=== PATIENT | male | born 1955 | race Caucasian/White ===

== ENCOUNTER 2018-02-11 09:59 | Day surgery (SDC) | payer MEDICAID ==
[~2018-02-11] VITALS: Ht 188 cm; Wt 93.2 kg
[~2018-02-11 09:59] MED LIST: EYE DROPS
[2018-02-11] MEDS ORDERED: BUSP5TAB3 PO (10:14)
[2018-02-11] MEDS ORDERED: BUPR100T13 PO (10:14)
[2018-02-11] MEDS ORDERED: fentaNYL/PF 50MCG/1 ML 2ML syringe ONE (10:43)
[2018-02-11] MEDS ORDERED: MIDAZolam 5mg/5ml vial ONE (10:43)
[2018-02-11 10:45] VITALS: BP 149/89
[2018-02-11 11:22] VITALS: BP 117/68
[2018-02-11 11:32] VITALS: BP 106/60
[2018-02-11 11:42] VITALS: BP 110/59
[2018-02-11 11:52] VITALS: BP 121/65
== END 2018-02-11 12:00 | disposition home or self-care (01) ==
LOC: GI LAB 09:59
PROVIDERS: ATTEND Internal Medicine Gastroenterology
DX: Z12.11 Encounter for screening for malignant neoplasm of colon (principal); D12.2 Benign neoplasm of ascending colon; D12.4 Benign neoplasm of descending colon; K57.30 Diverticulosis of large intestine without perforation or abscess without bleeding; K64.8 Other hemorrhoids; F32.9 Major depressive disorder, single episode, unspecified; F41.8 Other specified anxiety disorders; Z86.010 Personal history of colon polyps; Z88.5 Allergy status to narcotic agent; Z86.69 Personal history of other diseases of the nervous system and sense organs; Z87.820 Personal history of traumatic brain injury; Z79.899 Other long term (current) drug therapy; Z98.890 Other specified postprocedural states
CPT/HCPCS: 45380; 45385; 99152; 99153; J2250; J3010; J7030; A4620